=== PATIENT | female | born 2005 | race Caucasian/White ===

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

== ENCOUNTER 2024-01-01 05:13 | Inpatient (IN) | payer BC ==
[2024-01-01] MEDS ORDERED: Sodium Chloride 0.9% 2.5 ML Syringe FLUSH PRN (06:04)
[2024-01-01] MEDS ORDERED: Lidocaine 1% 50 ML MDV INJECT PRN (06:04)
[2024-01-01] MEDS ORDERED: Sodium Chloride 0.9% 10 ML Syringe FLUSH PRN (06:04)
[2024-01-01] MEDS ORDERED: Water For Irrigation,Sterile 1,000 ML Container IRR PRN (06:04)
[2024-01-01] MEDS ORDERED: Butorphanol 2 MG/ML SDV IVPUSH PRN (06:04)
[2024-01-01] MEDS ORDERED: Carboprost Tromethamine 250 MCG/1 mL Vial IM PRN (06:04)
[2024-01-01] MEDS ORDERED: Tranexamic Acid IN NACL,ISO-OS 1,000 MG in Premix Bag 1 BAG IV PRN (06:04)
[2024-01-01] MEDS ORDERED: Terbutaline 1 MG/ML SDV SUBCUT PRN (06:04)
[2024-01-01] MEDS ORDERED: Sodium Chloride 0.9% 20 ML SDV IV PRN (06:04)
[2024-01-01] MEDS ORDERED: Methylergonovine 0.2 MG/1 ML Amp IM PRN (06:04)
[2024-01-01] MEDS ORDERED: Oxytocin/0.9 % Sodium Chloride 30 UNIT/500 ML BAG IV SCH (06:15)
[2024-01-01 06:18] LABS: HEMATOCRIT 33.8 % (37.0-47.0); HEMOGLOBIN 11.1 g/dL (12.0-16.0); MEAN CORPUSCULAR HEMOGLOBIN 27.7 pg (28.0-32.0); MEAN CORPUSCULAR HGB CONC 32.8 g/dL (32.0-36.0); MEAN CORPUSCULAR VOLUME 84.3 fL (83.0-99.0); MEAN PLATELET VOLUME 9.8 fL (9.4-12.3); PLATELET COUNT,PLT 244 K/uL (150-400); RED BLOOD CELL COUNT 4.01 M/uL (4.10-5.30); WHITE BLOOD CELL COUNT,WBC 8.62 K/uL (4.5-13.5)
[2024-01-01] MEDS: Lactated Ringers 1,000 ML IV SCH (06:30)
[2024-01-01] MEDS: Oxytocin/0.9 % Sodium Chloride 30 UNIT/500 ML BAG IV SCH (06:31)
[2024-01-01] MEDS ORDERED: Bupivacaine 0.5% 10 ML SDV ONE (14:37)
[2024-01-01] MEDS ORDERED: Phenylephrine HCl In 0.9% NaCl 1 MG/10 ML Syringe ONE (14:37)
[2024-01-01] MEDS ORDERED: Ropivacaine HCl/PF 200 ML ONE (14:37)
[2024-01-01] MEDS: Ropivacaine HCl/PF 400 MG in Premix Bag 1 BAG EPIDUR SCH (14:55)
[2024-01-01] MEDS ORDERED: Phenylephrine HCl In 0.9% NaCl 1 MG/10 ML Syringe IVPUSH PRN (15:12)
[2024-01-01] MEDS ORDERED: ePHEDrine 50 MG/ML SDV IVPUSH PRN ×2 (15:12)
[2024-01-01] MEDS: Ondansetron 4 MG/2 ML SDV IVPUSH PRN (18:12)
[2024-01-01] MEDS ORDERED: Misoprostol 200 MCG Tab RECTAL ONE (21:15)
[2024-01-01] MEDS: Misoprostol 200 MCG Tab PO PRN (21:25)
[2024-01-01] MEDS ORDERED: oxyCODONE 5 MG Tab PO PRN (23:16)
[2024-01-01] MEDS ORDERED: Ibuprofen 800 MG Tab PO PRN (23:16)
[2024-01-02] MEDS: Witch Hazel Medicated Pads 40/Jar TOP PRN (00:20)
[2024-01-02] MEDS: Benzocaine/Menthol 20%-0.5% Spray 78 GM Cannister TOP PRN (00:20)
[2024-01-02] MEDS: Lanolin 100% Cream 7 GM Tube TOP PRN (00:21)
[2024-01-02] MEDS: Docusate Sodium 100 MG Cap PO PRN (00:21)
[2024-01-02] MEDS: Acetaminophen 500 MG Tab PO PRN (00:21)
[2024-01-02 06:25] LABS: HEMATOCRIT 24.5 % (37.0-47.0)
[2024-01-02] MEDS: Sodium Ferric Gluconate Cmplex 125 MG in Sodium Chloride 0.9% 100 ML IV SCH (16:50)
[2024-01-03 08:13] LABS: HEMATOCRIT 25.4 % (37.0-47.0); HEMOGLOBIN 8.1 g/dL (12.0-16.0); MEAN CORPUSCULAR HEMOGLOBIN 27.6 pg (28.0-32.0); MEAN CORPUSCULAR HGB CONC 31.9 g/dL (32.0-36.0); MEAN CORPUSCULAR VOLUME 86.4 fL (83.0-99.0); MEAN PLATELET VOLUME 9.2 fL (9.4-12.3); PLATELET COUNT,PLT 215 K/uL (150-400); RED BLOOD CELL COUNT 2.94 M/uL (4.10-5.30); WHITE BLOOD CELL COUNT,WBC 9.71 K/uL (4.5-13.5)
[2024-01-03] MEDS: Sodium Ferric Gluconate Cmplex 125 MG in Sodium Chloride 0.9% 100 ML IV SCH (10:00)
== END 2024-01-03 12:20 | disposition home or self-care (01) | DRG 560 ==
LOC: MW.OB 05:13 → OBSVTOIN 21:08 → MW.OB 01-02 00:38
PROVIDERS: ADMIT Obstetrics & Gynecology; ATTEND Obstetrics & Gynecology
PROC: 10E0XZZ Delivery of Products of Conception, External Approach (ICD-10-PCS; principal; 2024-01-01)
PROC: 3E033VJ Introduction of Other Hormone into Peripheral Vein, Percutaneous Approach (ICD-10-PCS; 2024-01-01)
PROC: 10907ZC Drainage of Amniotic Fluid, Therapeutic from Products of Conception, Via Natural or Artificial Opening (ICD-10-PCS; 2024-01-01)
PROC: 0HQ9XZZ Repair Perineum Skin, External Approach (ICD-10-PCS; 2024-01-01)
PROC: 0UQMXZZ Repair Vulva, External Approach (ICD-10-PCS; 2024-01-01)
PROC: 3E0R3BZ Introduction of Anesthetic Agent into Spinal Canal, Percutaneous Approach (ICD-10-PCS; 2024-01-01)
PROC: 00HU33Z Insertion of Infusion Device into Spinal Canal, Percutaneous Approach (ICD-10-PCS; 2024-01-01)
DX: O48.0 Post-term pregnancy (principal); O43.113 Circumvallate placenta, third trimester; Z37.0 Single live birth; O70.0 First degree perineal laceration during delivery; Z3A.41 41 weeks gestation of pregnancy; O90.81 Anemia of the puerperium; D62 Acute posthemorrhagic anemia; O71.82 Other specified trauma to perineum and vulva; O72.1 Other immediate postpartum hemorrhage
CPT/HCPCS: 01967; 36415; 51702; 85014; 85018; 85027; 86592; 86850; 86900; 86901; A9270-GY; C1729; J0665; J2371; J2405; J2590; J2795; J2916; J3490; J7120